=== PATIENT | male | born 1965 ===

== ENCOUNTER 2019-10-06 20:29 | Emergency (ER) | payer BC ==
--- NOTE | 2019-10-06 20:37 | UC ---
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- c/o pain across chest with inspiration x2 1/2 weeks, pain radiates to back on both sides "like you do when you have pneumonia", denies cough, no other respiratory sx -has been taking mucinex and sudafed (with no relief) because he "thought he had a chest cold coming on"; pt reports that sx has progressively worsened since onset 54 yo gentleman c/o 2 1/2 weeks feeling bad fatigue started with cough, no cough now has been taking cold medications mucinex and sudafed did not seek care right away, expresses concern that doctors don't prescribe antibiotics for 2 weeks no fever / chills notes some gi upset, taking omeprazole, feels that his h. pylori is acting up again no recent travel nonsmoker no known cardiac hx - History of Current Complaint Stated Complaint: CONGESTION, CHEST TIGHTNESS Time Seen by Provider: 10/06/19 20:30 Hx Obtained From: Patient - Allergy/Home Medications Allergies/Adverse Reactions: Allergies Allergy/AdvReac Type Severity Reaction Status Date / Time erythromycin AdvReac GI Upset Uncoded 10/06/19 20:40 Home Medications: Home Medications Atorvastatin* [Lipitor*] 20 mg PO QPM 10/06/19 [History Confirmed 10/06/19] Omeprazole 20 mg PO DAILY 10/06/19 [History Confirmed 10/06/19] PMH/Surg Hx/FS Hx/Imm Hx Previously Healthy: Yes - hx djd, hx h. pylori - Surgical History Surgical History: Yes Surgery Procedure, Year, and Place: VASETOMY, LASIK - Social History Substance Use Type: None Review of Systems All Other Systems Reviewed And Are Negative: Yes Constitutional: Positive: Fatigue Skin: Positive: Negative Eyes: Positive: Negative ENT: Positive: Negative Respiratory: Positive: Other - see hpi Cardiovascular: Positive: Chest Pain - see hpi Gastrointestinal: Positive: Negative Genitourinary: Positive: Negative Motor: Positive: Negative Neurovascular: Positive: Negative Musculoskeletal: Positive: Negative Neurological/Mental Status: Positive: Negative Psychological: Positive: Negative Is Patient Immunocompromised?: No Physical Exam Triage Information Reviewed: Yes Appearance: Well-Nourished - able to ambulate, change positions ok Vital Signs Reviewed: Yes Eye Exam: Normal - eyes a little water, but o/w nad ENT: Positive: Pharynx normal, TM dull, Other - reports that he usually gets sinus issues this time of year, but since he is taking cold medications, not too many sx now Neck exam: Normal Neck: Positive: Supple, Nontender, No Lymphadenopathy Respiratory Exam: Other - subj pain as per hpi Respiratory: Positive: Lungs clear, Normal breath sounds, No respiratory distress, No accessory muscle use Cardiovascular Exam: Normal Cardiovascular: Positive: RRR, Pulses Normal, Brisk Capillary Refill Abdominal Exam: Other - + bs noted + tender midepig (pt attributes to recurrence h.pylori) Musculoskeletal Exam: Normal Musculoskeletal: Positive: Strength Intact, No Edema Neurological Exam: Normal - grossly nonfocal Psychological Exam: Normal - nad Skin Exam: Normal - nondiaphoretic no visible or reported rash Course/Dx - Course Course Of Treatment: EKG SR at 89 bpm, no old in [place] for comp BP 144/93 -d/w pt, he reports that it is "white coat syndrome". Recommend ED evaluation / treatment. Mr. Tucker agrees to go to the ED (although expresses disappointment), but does not want to go to close facility. He states that he will call his and drive to [facility] ED. He is quite certain that he will go to [facility]. As such, I called [facility] to let them know. Spoke with intern retail, "Wilfrid" at [facility] ED . ASA 324mg ordered, but pt declined. - Diagnoses Provider Diagnosis: Chest pain Discharge ED - Sign-Out/Discharge Documenting (check all that apply): Patient Departure All imaging exams completed and their final reports reviewed: No Studies - Discharge Plan Condition: Guarded Disposition: HOME-RECOMMEND TO ED Patient Education Materials: Chest Pain (ED) Referrals: SHELBI Schroeder [Medical Doctor] - Additional Instructions: Please go to the Emergency Department. Stop and call 911 if problems in the meantime. - Billing Disposition and Condition Condition: GUARDED Disposition: Home-Recommend to ED
[2019-10-06 20:40] VITALS: BP 144/93
[2019-10-06] MEDS ORDERED: Aspirin 81 mg CHEW TAB* 81 MG TAB.CHEW PO ONE (20:59)
--- OUTSIDE RECORDS SUMMARY | 2019-10-06 21:06 | XMS REPORT | Continuity of Care Document ---
:1965 External Reference #:[id number] Author Name Brandyn Chávez M.D. Address [address] [place] [address] Care Team Providers Name Role Phone Raman Holguin M.D. Care Team Information Paving Bed Maker [phone] Brandyn Garrison M.D. - Ophthalmology Care Team Information Paving Bed Maker [phone] Problems Active Problems Provider Date Acute hydrops keratoconus Brandyn Chávez M.D. Onset: 04/15/2019 Corneal transplant Brandyn Chávez M.D. Onset: 01/14/2019 Corneal ectasia Brandyn Chávez M.D. Onset: 12/15/2018 Social History Type Date Description Comments Sex Unknown Tobacco Use Start: Unknown Never Smoked Cigarettes ETOH Use Denies alcohol use Tobacco Use Start: Unknown Patient has never smoked Smoking Status Reviewed: 08/17/19 Patient has never smoked Allergies, Adverse Reactions, Alerts Description No Known Drug Allergies Medications Active Medications SIG Qnty Indications Ordering Provider Date Prednisolone Acetate 1 drop left eye 15ml Z94.7 Brandyn Ferrera 01/16/2019 1% 1 times a day Joaquin Chávez Suspension Disp 90 day. Famotidine 1 by mouth twice Unknown 20mg Tablets a day as needed Atorvastatin Calcium 1 by mouth every Unknown 20mg day Tablets Immunizations Description No Information Available Vital Signs Date Vital Result Comment 08/17/2019 9:39am Intraocular Pressure Right Eye 12 mmHg Intraocular Pressure Left Eye 12 mmHg Al-, Applanation 09:41 Am 04/15/2019 10:15am Intraocular Pressure Left Eye 16 mmHg Al-, Applanation 10 :18 Am Results Description No Information Available Procedures Date Code Description Status 08/17/2019 03223 Corneal Topography Unilateral Or Bilateral With Completed Interpretation 08/17/2019 95962 Refraction Completed 08/17/2019 09971 Comprehensive Exam-Established Patient Completed Medical Devices Description No Information Available Encounters Description No Information Available Assessments Date Code Description Provider 08/17/2019 H18.621 Keratoconus, unstable, right eye Brandyn Chávez M.D. 08/17/2019 Z94.7 Corneal transplant status Brandyn Chávez M.D. 04/15/2019 H18.621 Keratoconus, unstable, right eye Brandyn Chávez M.D. 04/15/2019 Z94.7 Corneal transplant status Brandyn Chávez M.D. 02/20/2019 Z94.7 Corneal transplant status Brandyn Chávez M.D. Plan of Treatment 08/17/2019 - Brandyn Chávez M.D.H18.621 Keratoconus, unstable, right eyeComments:Follow at this time.Follow up:6 months short with maps.Z94.7 Corneal transplant statusComments:Use Prednisolone 1 drop left eye 1 xday. No rubbing the eye. Discussed with patient importance of drop compliance. Discontinuing topical steroids may result in graft complications. Functional Status Description No Information Available Mental Status Description No Information Available Referrals Description No Information Available
== END 2019-10-06 21:13 | disposition home health service (06) ==
LOC: UCCORT 20:29
DX: R07.9 Chest pain, unspecified (principal); R53.83 Other fatigue; M19.90 Unspecified osteoarthritis, unspecified site; Z88.1 Allergy status to other antibiotic agents
CPT/HCPCS: 93005; 99212; A9270-GY; G0463